=== PATIENT | male | born 2000 | race American Indian/Alaskan Native ===

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

== ENCOUNTER 2019-12-27 12:04 | Emergency (ER) | payer SELFPAY ==
--- NOTE | 2019-12-27 13:50 | Emergency Department Report ---
ED Medical Clearance HPI - General Chief complaint: Urogenital-Male Stated complaint: FERRARO WHEN URINATE Time Seen by Provider: 12/27/19 13:15 Source: patient Mode of arrival: Ambulatory - History of Present Illness Initial comments: 19-year-old F [place] male has a strong suspicion, contact with an STD reports having a 1 to 2 days of dysuria and probably some scant discharge a couple days ago and seeks treatment for the guidance. Ports no nausea vomiting fevers chills or sweats. -: Gradual Place: home Alledged Intoxication: No Compliant with Home Medications: No Associated Symptoms: denies: diaphoresis, denies other symptoms, confusion, fever/chills, headaches, anorexia, malaise, seizure, syncope, weakness Treatments Prior to Arrival: none Home medications: Previous Rx's Medication Instructions Recorded Last Taken Type Ibuprofen [Motrin 600 MG tab] 600 mg PO Q8H PRN #15 tablet 01/15/18 Unknown Rx Allergies/Adverse reactions: Allergies Allergy/AdvReac Type Severity Reaction Status Date / Time No Known Allergies Allergy Verified 01/15/18 23:45 ED Review of Systems ROS: Stated complaint: FERRARO WHEN URINATE Other details as noted in HPI Comment: All other systems reviewed and negative ED Past Medical Hx - Past Medical History Previous Medical History?: No - Surgical History Past Surgical History?: No - Social History Smoking Status: Never Smoker Substance Use Type: None - Medications Home Medications: Home Medications Medication Instructions Recorded Confirmed Last Taken Type Ibuprofen [Motrin 600 MG tab] 600 mg PO Q8H PRN #15 tablet 01/15/18 Unknown Rx ED Physical Exam - General Limitations: No Limitations General appearance: alert, in no apparent distress - Head Head exam: Present: atraumatic, normocephalic - Eye Eye exam: Present: normal appearance - ENT ENT exam: Present: mucous membranes moist - Neck Neck exam: Present: normal inspection - Respiratory Respiratory exam: Present: normal lung sounds bilaterally. Absent: respiratory distress - Cardiovascular Cardiovascular Exam: Present: regular rate, normal rhythm. Absent: systolic murmur, diastolic murmur, rubs, gallop - GI/Abdominal GI/Abdominal exam: Present: soft, normal bowel sounds - Rectal Rectal exam: Present: deferred - Extremities Exam Extremities exam: Present: normal inspection - Back Exam Back exam: Present: normal inspection - Neurological Exam Neurological exam: Present: alert, oriented X3 - Psychiatric Psychiatric exam: Present: normal affect, normal mood - Skin Skin exam: Present: warm, dry, intact, normal color. Absent: rash ED Medical Decision Making - Medical Decision Making 19-year-old F [place] male with a suspicion for an STD reports no fever notes no stomach pain noted no testicular pain or swelling. No hematuria. Is unsure of his partner status. Discussion the need to follow-up with the health department for complete STD panel and treatment and to avoid any sexual contact contact at that time. ED Disposition Clinical Impression: Possible exposure to STD Disposition: Z-07 MED SCREENING EXAM-LEFT Is pt being admited?: No Does the pt Need Aspirin: No Condition: Stable Instructions: Sexually Transmitted Diseases (ED), Safe Sex (ED) Referrals: PRIMARY CARE,MD [Primary Care Provider] - 3-5 Days [facility] [Outside] - 3-5 Days [facility] [Other] - 3-5 Days (F/u for a STD Panel and treatment. )
== END 2019-12-27 14:56 | disposition left against medical advice (07) ==
LOC: ED 12:04
DX: R30.0 Dysuria (principal); Z53.21 Procedure and treatment not carried out due to patient leaving prior to being seen by health care provider

== ENCOUNTER 2021-03-17 11:30 | Emergency (ER) | payer SELFPAY ==
[2021-03-17] MEDS ORDERED: IBUPROFEN 600 MG TAB PO ONE (11:49)
--- NOTE | 2021-03-17 12:16 | Emergency Department Report ---
ED ENT HPI - General Chief complaint: Sore Throat Stated complaint: SORE THROAT Source: patient Mode of arrival: Ambulatory Limitations: No Limitations - History of Present Illness Initial comments: 20-year-old -[place] male presents to the emergency room complaining of a sore throat with pain with swallowing and feels that his tonsils are swollen for the last few days. Patient denies any fever chills reports he is taking NyQuil. Denies any past medical history takes no meds on a daily basis and has no primary care provider. Patient also reports that his ears feel stopped up. He denies any nausea no vomiting no shortness of breath. MD complaint: sore throat Onset/Timin -: days(s) Location: R ear Severity: moderate Severity scale (0 -10): 7 Quality: stabbing, sharp Consistency: constant Worsens with: swallowing Associated Symptoms: pain with swallowing, sore throat - Related Data Previous Rx's Medication Instructions Recorded Last Taken Type Ibuprofen [Motrin 600 MG tab] 600 mg PO Q8H PRN #15 tablet 01/15/18 Unknown Rx Allergies Allergy/AdvReac Type Severity Reaction Status Date / Time No Known Allergies Allergy Verified 01/15/18 23:45 ED Dental HPI - General Chief complaint: Sore Throat Stated complaint: SORE THROAT Source: patient Mode of arrival: Ambulatory Limitations: No Limitations - Related Data Previous Rx's Medication Instructions Recorded Last Taken Type Ibuprofen [Motrin 600 MG tab] 600 mg PO Q8H PRN #15 tablet 01/15/18 Unknown Rx Allergies Allergy/AdvReac Type Severity Reaction Status Date / Time No Known Allergies Allergy Verified 01/15/18 23:45 ED Review of Systems ROS: Stated complaint: SORE THROAT Other details as noted in HPI Comment: All other systems reviewed and negative ED Past Medical Hx - Social History Smoking Status: Never Smoker Substance Use Type: None - Medications Home Medications: Home Medications Medication Instructions Recorded Confirmed Last Taken Type Ibuprofen [Motrin 600 MG tab] 600 mg PO Q8H PRN #15 tablet 01/15/18 Unknown Rx ED Physical Exam - General Limitations: No Limitations General appearance: alert, in no apparent distress - Head Head exam: Present: atraumatic, normocephalic - Eye Eye exam: Present: normal appearance - ENT ENT exam: Present: mucous membranes moist - Expanded ENT Exam Expanded TM/Canal exam: Cerumen Impaction: Right TM, Left TM Throat exam: Positive: tonsillar erythema, tonsillomegaly. Negative: tonsillar exudate - Neck Neck exam: Present: normal inspection, full ROM - Respiratory Respiratory exam: Absent: respiratory distress, accessory muscle use - Cardiovascular Cardiovascular Exam: Present: regular rate - Extremities Exam Extremities exam: Present: normal inspection, full ROM - Back Exam Back exam: Present: normal inspection - Neurological Exam Neurological exam: Present: alert, oriented X3, normal gait - Psychiatric Psychiatric exam: Present: normal affect, normal mood - Skin Skin exam: Present: warm, dry, intact, normal color. Absent: rash ED Course Vital Signs 03/17/21 11:34 Temperature 98.9 F Pulse Rate 72 Respiratory 15 Rate Blood Pressure 139/79 O2 Sat by Pulse 99 Oximetry ED Medical Decision Making - Medical Decision Making 20-year-old -[place] male presents to the emergency room complaining of a sore throat with pain with swallowing and feels that his tonsils are swollen for the last few days. Patient denies any fever chills reports he is taking NyQuil. Denies any past medical history takes no meds on a daily basis and has no primary care provider. Patient also reports that his ears feel stopped up. He denies any nausea no vomiting no shortness of breath. Rapid strep test done is negative. Patient has cerumen impaction bilateral will refer to ear nose and throat. Critical care attestation.: If time is entered above; I have spent that time in minutes in the direct care of this critically ill patient, excluding procedure time. ED Disposition Clinical Impression: Sore throat (viral), Impacted cerumen of both ears Disposition: HOME / SELF CARE / HOMELESS Is pt being admited?: No Does the pt Need Aspirin: No Condition: Stable Instructions: Earwax Buildup, Adult, Ear Drops, Adult, [id number], Sore Throat, [id number] Additional Instructions: Strep test is negative therefore you do not need any antibiotics. You can take Tylenol or ibuprofen for pain. Follow-up with your ear nose and throat provider I have listed 1 below for your convenience. You can try [id number] Debrox or cerumen impaction kits which are sold [id number]. Referrals: WAYNE MCKNIGHT MD [Referring] - 3-5 Days Forms: Work/School Release Form(ED) Time of Disposition: 12:15
[2021-03-17 12:36] VITALS: BP 116/71
[2021-03-17] MEDS ORDERED: LORazepam 2 MG/ML VIAL ONE (12:41)
== END 2021-03-17 12:53 | disposition home or self-care (01) ==
LOC: ED 11:30
DX: J02.9 Acute pharyngitis, unspecified (principal); H61.23 Impacted cerumen, bilateral; Z79.899 Other long term (current) drug therapy
CPT/HCPCS: 87116; 87430; 99283; 99284; J2060